=== PATIENT | male | born 1945 | race Caucasian/White ===

== ENCOUNTER → 2024-01-04 | Day surgery (SDC) | payer MEDICARE ==
[2024-01-01 10:52] LABS: BASOPHILS % 0.2 % (0.0-1.0); EOSINOPHILS # (AUTO) 0.3 (0.0-0.4); EOSINOPHILS % 4.7 % (0.0-6.0); HEMATOCRIT 41.5 % (38.2-49.6); HEMOGLOBIN 13.8 g/dL (14.0-18.0); LYMPHOCYTES # (AUTO) 0.7 (1.0-3.2); LYMPHOCYTES % 10.8 % (18.0-39.1); MEAN CORPUSCULAR HGB CONC 33.3 g/dL (31-35); MEAN CORPUSCULAR VOLUME 90.2 fL (81-99); MONOCYTES # (AUTO) 0.4 (0.2-0.8); MONOCYTES % 6.5 % (4.4-11.3); NEUTROPHILS # (AUTO) 4.7 (2.1-6.9); NEUTROPHILS % 77.5 % (38.7-80.0); PLATELET COUNT 212 x10e3/uL (140-360); RED CELL DISTRIBUTION WIDTH 12.4 % (11.7-14.4); WHITE BLOOD COUNT 6.11 x10e3/uL (4.8-10.8)
[2024-01-01 11:02] LABS: INR 0.89; PROTHROMBIN TIME 12.5 seconds (11.9-14.5)
[2024-01-01 11:12] LABS: ANION GAP 14.1 mmol/L (8-16); CALCIUM 10.1 mg/dL (8.4-10.2); CHOL/HDL RATIO 2.4 (3.9-4.7); CREATININE, SERUM 1.01 mg/dL (0.72-1.25); POTASSIUM 5.1 mmol/L (3.5-5.1)
[2024-01-04] VITALS (10 sets, daily range): BP systolic 72–189; BP diastolic 62–87; PULSE 54–190; RESP 18–20; TEMP 98.1; O2SAT 100
[~2024-01-04] VITALS: Ht 182.9 cm; Wt 81.6 kg
[~2024-01-04] MED LIST: ASPIRIN81 MG PO; ATORVASTATIN CA20 MG PO; FENTANYL CITRATE/PF 100MCG/2 ML INJ ONE; FINASTERIDE5 MG PO; FLOMAX0.4 MG PO; HEPARIN SOD (PORCINE) 1000 UNIT/ML 30ML ONE; HEPARIN SOD/SOD CHLORIDE 2,000 ML ONE; HYZAAR 100-251 EACH PO; IOPAMIDOL 370 MG/ML 100 ML INFUS..BTL INJ ONE; LEVOTHYROXINE75 MCG PO; LIDOCAINE HCL 2% LOCAL 20 ML VIAL ONE; MIDAZOLAM HCL 2 MG/2 ML VIAL ONE; NITROGLYCERIN/D5W 200 MCG/ML 250 ML ONE; NORVASC2.5 MG PO; SODIUM CHLORIDE 0.9% 1000ML 1,000 ML ONE; VERAPAMIL HCL 2.5 MG/ML 2 ML VIAL ONE
== END | disposition home or self-care (01) ==
LOC: CATH LAB 06:14
PROVIDERS: ATTEND Internal Medicine Cardiovascular Disease
DX: I70.213 Atherosclerosis of native arteries of extremities with intermittent claudication, bilateral legs (principal); I77.1 Stricture of artery; I25.810 Atherosclerosis of coronary artery bypass graft(s) without angina pectoris; I10 Essential (primary) hypertension; E78.5 Hyperlipidemia, unspecified; E03.9 Hypothyroidism, unspecified; Z01.810 Encounter for preprocedural cardiovascular examination; Z01.812 Encounter for preprocedural laboratory examination; Z01.818 Encounter for other preprocedural examination; Z79.82 Long term (current) use of aspirin; Z79.899 Other long term (current) drug therapy; Z95.1 Presence of aortocoronary bypass graft; Z82.49 Family history of ischemic heart disease and other diseases of the circulatory system
CPT/HCPCS: 36247; 36415; 71046; 75625; 75710; 76937; 80048; 80061; 85025; 85610; 85730; 93005; C1769 ×2; C1887 ×2; C1894; J1644; J2001; J2250; J3010; J7030; Q9967; 99152; 99153